=== PATIENT | female | born 1995 | race Caucasian/White ===

== ENCOUNTER 2021-05-27 09:23 | Inpatient (IN) ==
[2021-05-27] MEDS ORDERED: Metoclopramide 10 MG/2 ML VIAL IVP ONE (09:36)
[2021-05-27] MEDS ORDERED: Ringers Solution, Lactated 1,000 ML IVC ONE (09:36)
[2021-05-27] MEDS ORDERED: Famotidine 20 MG/2 ML VIAL IVP ONE (09:36)
[2021-05-27] MEDS ORDERED: CeFAZolin 2,000MG/50ML DUPLEX 2,000 MG/50 ML BAG IVPB ONE (09:36)
[2021-05-27] MEDS ORDERED: Oxytocin 20 units/ LR 1000 mL 20 UNIT/1,000 ML BAG IVC SCH (09:45)
[2021-05-27] MEDS ORDERED: Ringers Solution, Lactated 1,000 ML IVC SCH (09:45)
[2021-05-27 10:22] LABS: Basophils % 0.2 %; Eosinophils # 0.1 K/mcL (0.0-0.6); Eosinophils % 1.3 %; Hematocrit 36.6 % (35.3-44.9); Immature Granulocytes % 0.5 % (0-4); Lymphocytes # 2.1 K/mcL (0.6-4.6); Lymphocytes % 25.7 %; Mean Corpuscular HGB Conc 30.1 g/dL (31.6-35.5); Mean Corpuscular Hemoglobin 24.8 pg (28.0-33.3); Mean Corpuscular Volume 82.6 fL (83.0-100.0); Mean Platelet Volume 12.6 fL (9.4-12.4); Monocytes # 0.7 K/mcL (0.0-1.3); Monocytes % 8.4 %; Neutrophils # 5.3 K/mcL (1.6-8.9); Nucleated Red Blood Cells 0.2 /100 WBC (0); Platelet Count 194 K/mcL (140-400); Red Blood Count 4.43 M/mcL (3.82-4.97); Red Cell Distribution Width 15.7 % (11.5-14.5); Segmented Neutrophils % 63.9 %; White Blood Count 8.3 K/mcL (4.3-11.1)
[2021-05-27 10:29] LABS: Amphetamine Screen,Urine Negative ng/mL (Cutoff=1000); Barbiturate Screen,Urine Negative ng/mL (Cutoff=200); Benzodiazepines Screen,Urine Negative ng/mL (Cutoff=200); Cannabinoid Screen,Urine Negative ng/mL (Cutoff = 50); Cocaine Screen,Urine Negative ng/mL (Cutoff= 300); Opiate Screen,Urine Negative ng/mL (Cutoff=300); Phencyclidine Screen,Urine Negative ng/mL (Cutoff=25)
[2021-05-27] MEDS ORDERED: *HR* OxyCODONE Immed Rel 5 MG TABLET PO PRN (10:30)
[2021-05-27] MEDS ORDERED: *HR* FentaNYL (PF) 100 MCG/2 ML VIAL IVP PRN (10:30)
[2021-05-27] MEDS ORDERED: *HR* Nalbuphine 10 MG/ML AMPUL IV PRN (10:32)
[2021-05-27] MEDS ORDERED: *HR* Morphine Sulfate/PF 10 MG/10 ML AMPUL ONE (10:38)
[2021-05-27] MEDS ORDERED: *HR* FentaNYL (PF) 100 MCG/2 ML VIAL ONE (10:38)
[2021-05-27] MEDS ORDERED: *HR* Midazolam HCl 2 MG/2 ML VIAL ONE (10:40)
[2021-05-27] MEDS ORDERED: Ondansetron 4 MG/2 ML VIAL ONE (10:43)
[2021-05-27] MEDS ORDERED: Acetaminophen IV 1,000 MG/100 ML BAG IVPB ONE (10:44)
[2021-05-27] MEDS ORDERED: Ketorolac 30 MG/ML VIAL ONE (11:04)
[2021-05-27] MEDS ORDERED: Metoclopramide 10 MG/2 ML VIAL IVP PRN (15:13)
[2021-05-27] MEDS ORDERED: Ondansetron 4 MG/2 ML VIAL IVP PRN (15:13)
[2021-05-27] MEDS: *HR* HYDROcodone/Acet 5/325 mg TABLET PO PRN (15:39)
[2021-05-27] MEDS: Acetaminophen 325 MG TABLET PO SCH ×2 (18:27→20:02)
[2021-05-27] MEDS: Simethicone 80 MG TAB.CHEW PO SCH ×2 (18:29→20:02)
[2021-05-27] MEDS: Ketorolac 30 MG/ML VIAL IVP SCH (18:29)
[2021-05-28] MEDS ORDERED: Lanolin 7 G OINT...G. TP PRN (01:32)
[2021-05-28] MEDS: Ketorolac 30 MG/ML VIAL IVP SCH (02:58)
[2021-05-28 06:12] LABS: Basophils % 0.3 %; Eosinophils # 0.1 K/mcL (0.0-0.6); Eosinophils % 0.5 %; Hematocrit 28.3 % (35.3-44.9); Immature Granulocytes % 0.5 % (0-4); Lymphocytes % 18.3 %; Mean Corpuscular Hemoglobin 24.7 pg (28.0-33.3); Mean Corpuscular Volume 82.3 fL (83.0-100.0); Mean Platelet Volume 12.8 fL (9.4-12.4); Monocytes # 0.8 K/mcL (0.0-1.3); Monocytes % 7.4 %; Platelet Count 178 K/mcL (140-400); Red Blood Count 3.44 M/mcL (3.82-4.97); Red Cell Distribution Width 15.8 % (11.5-14.5)
[2021-05-28 06:14] LABS: Hemoglobin 8.5 g/dL (11.5-15.4)
[2021-05-28] MEDS: Simethicone 80 MG TAB.CHEW PO SCH (07:30)
[2021-05-28] MEDS: Prenatal Vit/FA 1 EACH TABLET PO SCH (07:30)
[2021-05-28] MEDS: *HR* HYDROcodone/Acet 5/325 mg TABLET PO PRN ×3 (07:30→16:42)
[2021-05-28] MEDS: Acetaminophen 325 MG TABLET PO SCH ×4 (07:30→23:37)
[2021-05-28] MEDS: Ibuprofen 600 MG TABLET PO SCH ×4 (09:17→23:37)
[2021-05-28] MEDS ORDERED: *HR* Enoxaparin 60 MG/0.6 ML SYRINGE SQ SCH (12:00)
[2021-05-28] MEDS: *HR* OxyCODONE Immed Rel 5 MG TABLET PO PRN ×2 (16:59→21:54)
[2021-05-28] MEDS: *HR* Enoxaparin 60 MG/0.6 ML SYRINGE SQ SCH (18:18)
[2021-05-29] MEDS: *HR* OxyCODONE Immed Rel 5 MG TABLET PO PRN ×2 (02:29→03:03)
[2021-05-29] MEDS ORDERED: *HR* OxyCODONE Immed Rel 5 MG TABLET PO PRN (02:53)
[2021-05-29] MEDS: *HR* Enoxaparin 60 MG/0.6 ML SYRINGE SQ SCH ×2 (06:24→18:40)
[2021-05-29] MEDS: Acetaminophen 325 MG TABLET PO SCH ×4 (06:25→19:38)
[2021-05-29] MEDS: Ibuprofen 600 MG TABLET PO SCH ×3 (06:25→18:41)
[2021-05-29 07:46] VITALS: O2SAT 100
[2021-05-29] MEDS ORDERED: *HR* HYDROmorphone 2 MG TABLET PO PRN (08:12)
[2021-05-29 08:43] LABS: Hematocrit 29.8 % (35.3-44.9); Hemoglobin 8.7 g/dL (11.5-15.4); Mean Corpuscular HGB Conc 29.2 g/dL (31.6-35.5); Mean Corpuscular Hemoglobin 24.6 pg (28.0-33.3); Mean Corpuscular Volume 84.4 fL (83.0-100.0); Mean Platelet Volume 11.5 fL (9.4-12.4); Platelet Count 184 K/mcL (140-400); Red Blood Count 3.53 M/mcL (3.82-4.97); White Blood Count 9.7 K/mcL (4.3-11.1)
[2021-05-29] MEDS: *HR* HYDROmorphone (PF) 1 MG/ML SYRINGE IVP PRN ×2 (15:33→19:38)
[2021-05-29] MEDS: Simethicone 80 MG TAB.CHEW PO SCH ×4 (15:34→23:25)
[2021-05-29] MEDS: *HR* HYDROcodone/Acet 5/325 mg TABLET PO PRN (23:25)
[2021-05-30] MEDS: Ibuprofen 600 MG TABLET PO SCH ×3 (00:21→12:15)
[2021-05-30] MEDS: *HR* HYDROcodone/Acet 5/325 mg TABLET PO PRN ×3 (03:35→12:17)
[2021-05-30] MEDS: *HR* Enoxaparin 60 MG/0.6 ML SYRINGE SQ SCH (06:19)
[2021-05-30] MEDS: Simethicone 80 MG TAB.CHEW PO SCH (07:46)
[2021-05-30] MEDS: Prenatal Vit/FA 1 EACH TABLET PO SCH (07:50)
[2021-05-30 08:27] VITALS: BP 117/77; PULSE 89; TEMP 97.9
== END 2021-05-30 13:04 | disposition home or self-care (01) | DRG 787 ==
LOC: SAMDAY 09:23 → 1NENULAB 09:26 → 1NENUOBS 14:57
PROVIDERS: ADMIT Obstetrics & Gynecology; ATTEND Obstetrics & Gynecology